=== PATIENT | female | born 1940 | race Caucasian/White ===

== ENCOUNTER 2018-08-28 12:51 | Emergency (ER) | payer MEDICARE, BC ==
[~2018-08-28] VITALS: Ht 152.4 cm; Wt 55.5 kg
[~2018-08-28 12:51] MED LIST: BUSP30TA PO; FAMO-79 PO; MIRT7.5T8 PO; VENL75CA6 PO
[2018-08-28] MEDS ORDERED: OMEP20TA62 PO (13:29)
[2018-08-28] MEDS ORDERED: LORA-446 PO (13:29)
[2018-08-28] MEDS ORDERED: CARI1.5C2 PO (13:29)
[2018-08-28] MEDS ORDERED: [UNRECOGNIZED DRUG - CODE] PO-COUM (13:29)
[2018-08-28] MEDS ORDERED: LORazepam 1MG TABLET PO ONE (13:30)
[2018-08-28 13:44] LABS: BASOPHILS # (AUTO) 0.04 x10^3/uL (0-0.1); BASOPHILS % (AUTO) 1 % (0-1); EOSINOPHILS # (AUTO) 0.24 x10^3/uL (0-0.4); EOSINOPHILS % (AUTO) 3 % (1-7); LYMPHOCYTES # (AUTO) 3.61 x10^3/uL (1-3.4); LYMPHOCYTES % (AUTO) 44 % (22-44); MD NO; MEAN CORPUSCULAR HEMOGLOBIN 25.4 pg (27.0-34.8); MEAN CORPUSCULAR VOLUME 77.1 fL (80-100); MEAN PLATELET VOLUME 7.3 fL (7.4-10.4); MONOCYTES # (AUTO) 0.76 x10^3/uL (0.2-0.8); MONOCYTES % (AUTO) 9 % (2-9); NEUTROPHILS % (AUTO) 44 % (42-75); PLATELET COUNT 359 x10^3/uL (130-400); RED BLOOD COUNT 4.79 x10^6/uL (3.82-5.3); RED CELL DISTRIBUTION WIDTH 21.3 % (9.6-15.2)
[2018-08-28] MEDS ORDERED: LORazepam 1MG TABLET ONE (13:48)
[2018-08-28 13:57] LABS: ALBUMIN 3.5 g/dL (3.4-5.0); ANION GAP 10 mmol/L (5-15); CALCIUM 8.4 mg/dL (8.5-10.1); CHLORIDE 103 mmol/L (98-107); CREATININE 0.84 mg/dL (0.55-1.02); T4 (THYROXINE) 8.1 mcg/dL (4.8-13.9)
[2018-08-28 14:20] VITALS: BP 122/75
== END 2018-08-28 14:34 | disposition home or self-care (01) ==
LOC: ED 14:27
DX: F41.1 Generalized anxiety disorder (principal)
CPT/HCPCS: 36415; 80048; 82040; 84436; 84443; 85025; 93005; 99285